=== PATIENT | female | born 1965 | race African-American/Black ===

== ENCOUNTER 2017-11-22 08:50 | Emergency (ER) | payer OTHER ==
[~2017-11-22] VITALS: Ht 182.9 cm; Wt 113.0 kg
[2017-11-22 08:51] VITALS: BP 151/82
== END 2017-11-22 16:01 | disposition left against medical advice (07) ==
LOC: ER 08:55
DX: H92.09 Otalgia, unspecified ear (principal); Z53.21 Procedure and treatment not carried out due to patient leaving prior to being seen by health care provider